=== PATIENT | female | born 1975 | race Caucasian/White ===

== ENCOUNTER → 2018-08-21 11:10 | Outpatient (CLI) | payer MEDICAID, SELFPAY ==
--- NOTE | 2018-08-21 11:25 | XR_ITS ---
XR foot LT min 3V Ordering Physician: Leticia Quezada Patient Age: 43 years: Female HISTORY: ITS.REASON: SINDHU FOOT PAIN Bilateral foot pain. TECHNIQUE: Right foot 3 views. Nonweightbearing Left foot 3 views nonweightbearing COMPARISON :No relevant prior to current there ====== RIGHT FOOT Joint spaces well-maintained. No erosions. Normal relationships. Metatarsals intact. Tarsals unremarkable.. Small/-Moderate 6 mm plantar calcaneal spur noted. IMPRESSION -------- negative right foot. No significant appearing findings Minimal plantar calcaneal spur noted. LEFT FOOT Left foot intact. Bones well mineralized. Normal relationships. Joint spaces well-maintained. No significant erosions. Adequate plantar arch bilaterally. The small accessory ossicle the medial aspect of tarsal navicular. The left foot but not seen on the right. Right. Noted but not felt to be of significance. IMPRESSION: Negative left foot. No significant findings.
== END ==
PROVIDERS: PCP Family Medicine; Visit Provider Nurse Practitioner Family
DX: M79.671 Pain in right foot (principal); M79.672 Pain in left foot
CPT/HCPCS: 73630

== ENCOUNTER → 2018-12-04 13:50 | Outpatient (CLI) | payer MEDICAID, SELFPAY ==
--- NOTE | 2018-12-04 13:59 | XR_ITS ---
EXAM: XR cervical spine 5V HISTORY: ITS.REASON: CERVICALGIA,NUMBNESS OF BOTH HANDS ORDERING PHYSICIAN: Leticia Quezada PATIENT AGE: 43 years COMPARISON: None FINDINGS: Normal alignment. No fracture or dislocation. No lytic or blastic change. C1-C7 appear intact. Oblique films show normal neural foramina bilaterally. The prevertebral soft tissues are normal and the odontoid is normal. No significant degenerative change. The disc spaces are preserved. IMPRESSION: Essentially unremarkable cervical spine, if symptoms persist consider follow-up MRI scan
== END ==
PROVIDERS: PCP Nurse Practitioner Family; Visit Provider Nurse Practitioner Family
DX: M54.2 Cervicalgia (principal); R20.0 Anesthesia of skin
CPT/HCPCS: 72050

== ENCOUNTER → 2019-09-12 23:30 | Outpatient (CLI) | payer OTHER, SELFPAY ==
[2019-09-27 12:33] LABS: Comment Comment: (.); Specimen Type Comment: (.)
== END ==
PROVIDERS: Visit Provider Nurse Practitioner Family
DX: N20.0 Calculus of kidney (principal)
CPT/HCPCS: 82370

== ENCOUNTER → 2019-10-14 15:49 | Outpatient (CLI) | payer OTHER, SELFPAY ==
--- NOTE | 2019-10-14 15:54 | XR_ITS ---
PROCEDURE: XR THORACIC SPINE 3V CLINICAL INDICATION: THORACIC PAIN Mid back pain COMPARISON: No exams were available for comparison FINDINGS: There is mild multilevel degenerative disc disease with slight decrease in the disc spaces and small anterior osteophytes from T4-T11. No fracture or dislocation. No lytic or blastic change. There is normal alignment. IMPRESSION: Mild thoracic spondylosis Dictated by: Chava Dockery MD 10/14/2019 17:59 Electronically signed by Chava Dockery MD in [place] 10/14/2019 17:59
== END ==
PROVIDERS: PCP Nurse Practitioner Family; Visit Provider Nurse Practitioner Family
DX: M54.6 Pain in thoracic spine (principal)
CPT/HCPCS: 72072

== ENCOUNTER → 2019-10-18 14:36 | Outpatient (CLI) | payer OTHER, SELFPAY ==
--- NOTE | 2019-10-18 14:42 | US_ITS ---
PROCEDURE: US KIDNEY CLINICAL INDICATION: RT RENAL STONE Right-sided flank pain COMPARISON: No exams were available for comparison FINDINGS: The right kidney is 12 x 5 x 6 cm. No hydronephrosis, cortical thinning, or renal mass or perinephric fluid collection is evident. The left kidney is 11 x 6 x 5 cm. No hydronephrosis, cortical thinning, or renal mass or perinephric fluid collection is evident. IMPRESSION: Unremarkable bilateral renal ultrasound Dictated by: Chava Dockery MD 10/18/2019 15:39 Electronically signed by Chava Dockery MD in [place] 10/18/2019 15:39
== END ==
PROVIDERS: PCP Nurse Practitioner Family; Visit Provider Nurse Practitioner Family
DX: N20.0 Calculus of kidney (principal)
CPT/HCPCS: 76770

== ENCOUNTER → 2019-12-19 14:30 | Outpatient (CLI) | payer OTHER, SELFPAY ==
--- NOTE | 2019-12-19 14:34 | US_ITS ---
PROCEDURE: US SOFT TISSUE HEAD AND NECK CLINICAL INDICATION: lipoma on neck Palpable area right posterior neck COMPARISON: [facility] US SOFT TISSUE HEAD/NECK from 02/11/2014 FINDINGS: There is an oval area of isoechoic O [place] in the subcutaneous region of the right neck measuring 3 point 3 x 1 x 3 cm. This is homogeneous in nature and may represent a lipoma. No enlarged lymph nodes or abnormal fluid collections evident at this region. IMPRESSION: Palpable abnormality in the right neck appears to represent a lipoma. This could be confirmed with CT if clinically warranted Dictated by: Chava Dockery MD 12/19/2019 15:45 Electronically signed by Chava Dockery MD in [place] 12/19/2019 15:45
== END ==
PROVIDERS: PCP Nurse Practitioner Family; Visit Provider Surgery
DX: D17.0 Benign lipomatous neoplasm of skin and subcutaneous tissue of head, face and neck (principal)
CPT/HCPCS: 76536

== ENCOUNTER → 2020-05-09 13:23 | Outpatient (CLI) | payer OTHER, SELFPAY ==
[2020-05-10 09:18] LABS: Covid-19 Nasal PCR Sendout UK Not Detected
== END ==
PROVIDERS: PCP Nurse Practitioner Family; Visit Provider Nurse Practitioner
DX: Z03.818 Encounter for observation for suspected exposure to other biological agents ruled out (principal)
CPT/HCPCS: U0003

== ENCOUNTER 2020-07-17 12:15 | Emergency (ER) | payer OTHER, SELFPAY ==
[2020-07-17 12:45] VITALS: BP 123/63; PULSE 109; RESP 18; TEMP 36.7; O2SAT 99; BMI 35.4
--- NOTE | 2020-07-17 13:05 | HMH.EDUTC ---
[facility] [place] Clinical Impression: Exposure to COVID-19 virus Disposition: Home, Self-Care Condition on Discharge: Good Instructions: Preventing the Spread of Coronavirus Discharge Instructions Additional Instructions: Drink plenty of fluids. Take tylenol for pain or fever. Follow up with your regular doctor. GO TO THE ER FOR ANY WORSENING SYMPTOMS Referrals: Leticia Quezada APRN [Primary Care Provider] - Forms: Work/School Release Time of Disposition: 13:06 Medical Decision Making - Medical Records Medical records reviewed: No: I reviewed the patient's medical records. - Wyatt Inquiry Pt receiving controlled substance: No Vital Signs: 07/17/20 12:45 07/17/20 13:57 Temperature 98.0 F 98.0 F Temperature Source Oral Oral Pulse Rate 109 H Pulse Rate [Radial] 109 H Respiratory Rate 18 18 Blood Pressure 123/63 Blood Pressure [Right Arm] 123/63 Blood Pressure Mean [Right Arm] 83 Blood Pressure Source Automatic Cuff Blood Pressure Source [Right Arm] Automatic Cuff Blood Pressure Position Sitting Blood Pressure Position [Right Arm] Sitting 02 Sat by Pulse Oximetry 99 Oxygen Delivery Method Room Air Room Air Orders (Tests/Meds): ORDERS Category Date Time Status Covid-19 Nasal PCR Sendout [facility] 07/17/20 12:53 Received [facility] [place] HPI - General Stated complaint: Covid test Time Seen by Provider: 07/17/20 13:05 Mode of Arrival: Ambulatory Source of Information: Patient Limitations: No Limitations Description of Symptoms (Recalled from Triage Doc. by RN): covid test HEENT Symptoms (Recalled from RN notes): No Resp Symptoms (Recalled from RN notes): No Skin Symptoms (Recalled from RN notes): No MS Symptoms (Recalled from RN notes): No Functional Status (Recalled from RN notes): wnl - History of Present Illness Provider Complaint: She states that she was exposed to covid. She denies any symptoms so far. - Related Data Previous Rx's Medication Instructions Recorded diclofenac sodium 1 % topical gel 4 g TOPICAL QID PRN #30 g 06/13/19 meloxicam 7.5 mg tablet 7.5 mg PO ONCE #30 tab 06/13/19 Ketorolac Tromethamine [Toradol 10 mg PO Q6H 5 Days #20 tab 09/06/19 10mg tablet] Ondansetron [Zofran 4mg ODT] 4 mg PO Q8H PRN #10 tab.rapdis 09/06/19 Tamsulosin HCl [Flomax 0.4mg 0.4 mg PO HS #5 cap 09/06/19 capsule] Allergies Allergy/AdvReac Type Severity Reaction Status Date / Time Penicillins Allergy Unknown ITCHING Verified 10/21/19 14:58 - Worker's Comp Is this a Worker's Comp case?: No [facility] History - Hepatitis A Screen Drug use history?: No High risk sexual behaviors?: No History of sexually transmitted infection?: No Currently employed?: No Childcare worker?: No Do you have indoor plumbing?: Yes Do you have electricity?: Yes Attestation statement:: This patient has been screened for Hepatitis A risk factors. I have reviewed the patient's past medical history: Yes Medical History: Reports:: Anxiety, Depression, Hypertension Other Surgeries: Yes: Cholecystectomy, Tubal Ligation, Other Amputation: No Fractures: No Comment: Remove lipoma off neck - Social History Smoking Status: Never smoker Alcohol Intake: never Substance Use Type: denies use Occupational Status: employed Housing: house Household Members: family - Psychiatric History Pschychiatric History:: Reports:: Anxiety, Depression Family Hx:: No significant family history ROS Obtained: Yes All systems reviewed & no additional complaints - Constitutional Constitutional: Reports system reviewed and no additional complaints, except as docu - Eyes Eyes: Reports system reviewed and no additional complaints, except as docu - ENT Ears, Nose, Mouth, and Throat: Reports system reviewed and no additional complaints, except as docu - Cardiovascular Cardiovascular: Reports system reviewed and no additional complaints, except as docu - Respiratory Respiratory: Yes sys
[2020-07-17 13:57] VITALS: BP 123/63; PULSE 109; RESP 18; TEMP 36.7; O2SAT 99
== END 2020-07-17 13:58 | disposition home or self-care (01) ==
PROVIDERS: Emergency Provider Nurse Practitioner Family; PCP Nurse Practitioner Family
DX: Z20.828 Contact with and (suspected) exposure to other viral communicable diseases (principal); I10 Essential (primary) hypertension; F41.8 Other specified anxiety disorders; Z79.899 Other long term (current) drug therapy
CPT/HCPCS: 99201; U0003

== ENCOUNTER 2020-11-06 14:48 | Emergency (ER) | payer OTHER, SELFPAY ==
[2020-11-06 14:50] VITALS: BP 146/102; PULSE 100; RESP 20; TEMP 36.9; O2SAT 98; BMI 32.5
--- NOTE | 2020-11-06 15:15 | PC.NURSE ---
PATIENT GIVEN TDAP TO LEFT DELTOID AT THIS TIME. LOT #[id number] EXP. 07/29/22
--- NOTE | 2020-11-06 15:26 | HMH.EDUTC ---
[facility] [place] Clinical Impression: Dog bite of right hand including fingers with infection Qualifiers: Encounter type: initial encounter Qualified Code(s): S61.451A - Open bite of right hand, initial encounter; S61.259A - Open bite of unspecified finger without damage to nail, initial encounter; L08.9 - Local infection of the skin and subcutaneous tissue, unspecified; W54.0XXA - Bitten by dog, initial encounter Disposition: Home, Self-Care Condition on Discharge: Good Instructions: DI for Dog Bite Additional Instructions: Take antibiotics, warm epsom salt soaks, and return to clinic if symptoms worsen Prescriptions: clindamycin HCL [Clindamycin HCl] 300 mg PO TID 10 Days #30 cap Transmission Status: Pending to [facility] Referrals: Leticia Quezada APRN [Primary Care Provider] - Time of Disposition: 15:38 Medical Decision Making - Wyatt Inquiry Pt receiving controlled substance: No Vital Signs: 11/06/20 14:50 Temperature 98.4 F Temperature Source Oral Pulse Rate [Right Brachial] 100 H Respiratory Rate 20 Blood Pressure [Right Arm] 146/102 H Blood Pressure Mean [Right Arm] 116 Blood Pressure Source [Right Arm] Automatic Cuff Blood Pressure Position [Right Arm] Sitting 02 Sat by Pulse Oximetry 98 Oxygen Delivery Method Room Air [facility] [place] - General Stated complaint: [id number] dog bite to right hand Time Seen by Provider: 11/06/20 15:27 Mode of Arrival: Ambulatory Source of Information: Patient Limitations: No Limitations Description of Symptoms (Recalled from Triage Doc. by RN): PATIENT C/O DOG BITE TO RIGHT HAND. STATES SHE WAS PETTING NEIGHBOR'S DOG YESTERDAY AND IT BIT HER. SHE STATES DOG IS UP TO DATE ON VACCINES. SHE IS UNSURE ABOUT HER TDAP HEENT Symptoms (Recalled from RN notes): No Resp Symptoms (Recalled from RN notes): No Skin Symptoms (Recalled from RN notes): Yes MS Symptoms (Recalled from RN notes): No Functional Status (Recalled from RN notes): WNL - History of Present Illness Provider Complaint: Dog bite to right hand approximately 24 hours ago. No fever, but hand is hot, warm, red and swollen. Dog belonged to neighbor and was UTD on shots. Onset (ago): day(s) (1) Location: right, upper extremity Relieving factors: none Exacerbating factors: none Associated symptoms: denies other symptoms - Related Data Previous Rx's Medication Instructions Recorded diclofenac sodium 1 % topical gel 4 g TOPICAL QID PRN #30 g 06/13/19 meloxicam 7.5 mg tablet 7.5 mg PO ONCE #30 tab 06/13/19 Ketorolac Tromethamine [Toradol 10 mg PO Q6H 5 Days #20 tab 09/06/19 10mg tablet] Ondansetron [Zofran 4mg ODT] 4 mg PO Q8H PRN #10 tab.rapdis 09/06/19 Tamsulosin HCl [Flomax 0.4mg 0.4 mg PO HS #5 cap 09/06/19 capsule] clindamycin HCL [Clindamycin HCl] 300 mg PO TID 10 Days #30 cap 11/06/20 Allergies Allergy/AdvReac Type Severity Reaction Status Date / Time Penicillins Allergy Unknown ITCHING Verified 10/21/19 14:58 - Worker's Comp Is this a Worker's Comp case?: No [facility] History - Hepatitis A Screen Drug use history?: No High risk sexual behaviors?: No History of sexually transmitted infection?: No Currently employed?: No Childcare worker?: No Do you have indoor plumbing?: Yes Do you have electricity?: Yes Attestation statement:: This patient has been screened for Hepatitis A risk factors. Medical History: Reports:: Anxiety, Depression, Hypertension Other Surgeries: Yes: Cholecystectomy, Tubal Ligation, Other Amputation: No Fractures: No Comment: Remove lipoma off neck - Social History Smoking Status: Never smoker Alcohol Intake: never Substance Use Type: denies use Occupational Status: other Housing: house Household Members: family - Psychiatric History Pschychiatric History:: Reports:: Anxiety, Depression Family Hx:: No significant family history ROS Obtained: Yes All systems reviewed & no additional complaints - Musculoskeletal Musc
[2020-11-06 15:35] VITALS: BP 146/102; PULSE 100; RESP 20; TEMP 36.9; O2SAT 98
== END 2020-11-06 15:37 | disposition home or self-care (01) ==
PROVIDERS: Emergency Provider Physician Assistant; PCP Nurse Practitioner Family
DX: S61.451A Open bite of right hand, initial encounter (principal); W54.0XXA Bitten by dog, initial encounter; Z23 Encounter for immunization; I10 Essential (primary) hypertension; F41.8 Other specified anxiety disorders; Z88.0 Allergy status to penicillin
CPT/HCPCS: 90471; 90714; 99202; G0463

== ENCOUNTER → 2021-05-28 11:10 | Outpatient (CLI) | payer OTHER, SELFPAY ==
--- NOTE | 2021-05-28 11:34 | XR_ITS ---
PROCEDURE: XR CERVICAL SPINE 5V CLINICAL INDICATION: NUMBNESS OF UPPER EXTREMITY, CERVICALGIA COMPARISON: CR [id number] XR cervical spine 5V from 12/04/2018 FINDINGS: Normal alignment. No acute fracture or dislocation. Mild multilevel degenerative disc disease from C2 to C6. Small endplate osteophytes are present. There is mild foraminal narrowing on the left at C5-C6 with moderate right-sided foraminal narrowing at C5-C6. Facet hypertrophic changes are present from C2-C6. IMPRESSION: Cervical spondylosis as described above with bilateral foraminal narrowing at C5-C6. These findings have developed since 12/04/2018 Dictated by: Chava Dockery MD 05/28/2021 12:16 Chava Dockery MD in [place] 05/28/2021 12:16
[2021-05-28 11:49] LABS: Basophils # 0.1 K/mm3 (0-0.2); Basophils % 1.4 % (0.1-2.0); Eosinophils # 0.1 K/mm3 (0.0-0.4); Eosinophils % 1.2 % (0.1-12.0); Hematocrit 46.5 % (37.0-47.0); Lymphocytes # 3.2 K/mm3 (0.7-4.5); Lymphocytes % 34.4 % (10-50); Mean Corpuscular HGB Conc 32.2 g/dL (31.8-35.4); Mean Corpuscular Hemoglobin 28.7 pg (27.0-31.2); Mean Corpuscular Volume 89.1 fl (81-99); Monocytes # 0.5 K/mm3 (0.1-1.0); Monocytes % 5.4 % (1.7-9.3); Neutrophils # 5.3 K/mm3 (1.8-7.8); Neutrophils % 57.5 % (37.0-80.0); Platelet Count 467 K/mm3 (142-424); Red Blood Count 5.22 M/mm3 (4.20-5.40); Red Cell Distribution Width 13.4 % (11.5-17.5); White Blood Count 9.2 K/mm3 (4.8-10.8)
[2021-05-28 12:59] LABS: Alanine Aminotransferase 48 U/L (12-78); Albumin/Globulin Ratio 1.3 (1.1-1.8); Alkaline Phosphatase 75 U/L (38-126); Anion Gap 15.6 mEq/L (5-15); Aspartate Amino Transferase 52 U/L (14-36); Bilirubin,Total 0.4 mg/dl (0.2-1.3); Blood Urea Nitrogen 6 mg/dl (7-17); Calcium 9.3 mg/dl (8.4-10.2); Carbon Dioxide 24 mmol/L (22.0-30.0); Chloride 103 mmol/L (98-107); Cholesterol 207 mg/dl (140-200); Estimated Glomerular Filt Rate 108 ml/min (>60); GFR (African American) 131 ML/MIN (>60); Glucose 114 mg/dl (74-100); HDL Cholesterol 52 mg/dl (40-60); Magnesium 1.8 mg/dl (1.6-2.3); Potassium 4.6 mmoL/L (3.5-5.1); Sodium 138 mmol/L (136-145); Triglycerides 191 mg/dl (30-150); VLDL Cholesterol 38 mg/dL (0-40)
[2021-05-28 13:10] LABS: C-Reactive Protein 4.8 mg/L (0-4); Direct LDL Cholesterol 118.32 mg/dL (100-129)
[2021-05-28 13:49] LABS: Vitamin B12 547 pg/mL (239-931)
== END ==
PROVIDERS: PCP Nurse Practitioner Family; Visit Provider Nurse Practitioner Family
DX: I10 Essential (primary) hypertension (principal); R20.0 Anesthesia of skin; R51.9 Headache, unspecified; M54.2 Cervicalgia
CPT/HCPCS: 36415; 72050; 80053; 80061; 82607; 83735; 84443; 85025; 86140

== ENCOUNTER → 2021-06-11 07:45 | Outpatient (CLI) | payer OTHER, SELFPAY ==
--- NOTE | 2021-06-11 07:51 | MR_ITS ---
PROCEDURE INFORMATION: Exam: MR Head Without Contrast Exam date and time: 06/11/2021 7:51 AM Age: 45 years old Clinical indication: Pain; Headache; Additional info: Recurrent headache. Headache. Dizziness and blurred vision. Prior MR 12-19-16 TECHNIQUE: Imaging protocol: MR of the head without contrast. COMPARISON: BRW/O MRI-BRAIN W/O 12/19/2016 8:22 AM FINDINGS: Brain: There are few punctate hyperintense foci within the subcortical white matter. For instance 3 mm hyperintense focus in the left frontal white matter on series 5, image 12. Small bifrontal hyperintense foci on images 19 and 20. These have not significantly changed from prior scan. No evidence of infarct. DWI demonstrates no evidence of acute infarct. There is no hemorrhage or extra-axial collection. There is no mass. There are no abnormal flow voids. Cerebral ventricles: There is no hydrocephalus. Bones/joints: Unremarkable. Paranasal sinuses: Normal as visualized. No acute sinusitis. Mastoid air cells: Trace of fluid in the left mastoids similar to prior scan. Orbital cavity: Unremarkable. Soft tissues: Unremarkable. IMPRESSION: 1. There are few punctate hyperintense foci in the subcortical white matter. This is a nonspecific finding which could represent small foci of microvascular or demyelinating disease. Foci such is ease are seen in increased incidence in patients with migraine headaches. Often such minimal foci are idiopathic with no clinical correlate. These findings have not significantly changed from prior scan. 2. No acute intracranial lesion or injury
== END ==
PROVIDERS: PCP Nurse Practitioner Family; Visit Provider Nurse Practitioner Family
DX: R51.9 Headache, unspecified (principal); R20.0 Anesthesia of skin
CPT/HCPCS: 70551

== ENCOUNTER → 2021-06-30 13:08 | Outpatient (CLI) | payer OTHER, SELFPAY | PROVIDERS: PCP Nurse Practitioner Family; Visit Provider Specialist | DX: R53.83 Other fatigue (principal); G47.19 Other hypersomnia; G43.119 Migraine with aura, intractable, without status migrainosus; I10 Essential (primary) hypertension | CPT/HCPCS: 95806 ==

== ENCOUNTER → 2022-07-25 12:50 | Outpatient (CLI) | payer OTHER, SELFPAY ==
--- NOTE | 2022-07-25 12:56 | CT_ITS ---
FINAL REPORT TECHNIQUE: Axial images through the abdomen and pelvis were performed without contrast.This study was performed with techniques to keep radiation doses as low as reasonably achievable, (ALARA). Individualized dose reduction techniques using automated exposure control or adjustment of mA and/or kV according to the patient's size were employed. CLINICAL HISTORY: RT FLANK PAIN,HEMATURIA COMPARISON: 09/06/2019 FINDINGS: ABDOMEN: The lung bases are clear. The heart size is normal. Limited images of the liver are unremarkable. Patient is status post cholecystectomy. The spleen is normal. No adrenal mass is identified. The aorta is normal in caliber. There is no significant free fluid or adenopathy. There is no nephrolithiasis. There is no hydronephrosis. PELVIS: The appendix is normal. The urinary bladder is unremarkable. There is no significant free fluid or adenopathy. IMPRESSION: No hydronephrosis or nephrolithiasis. Reviewed, Interpreted and Dictated by Gutierrez Herrera III, MD Transcribed by Courtney Lock Authenticated and [facility]
== END ==
PROVIDERS: PCP Nurse Practitioner Family; Visit Provider Nurse Practitioner Family
DX: R10.9 Unspecified abdominal pain (principal); R31.9 Hematuria, unspecified
CPT/HCPCS: 74176

== ENCOUNTER → 2022-08-23 10:07 | Outpatient (CLI) | payer OTHER, SELFPAY ==
--- NOTE | 2022-08-23 10:13 | US_ITS ---
FINAL REPORT CLINICAL HISTORY: SUPRAPUBIC PAIN FINDINGS: Transvaginal sonographic images of the pelvis were obtained. The uterus enlarged and measures 10.4 x 5.9 x 5.2 cm. Heterogeneous echotexture of the uterus may represent adenomyosis. The endometrium measures 16 mm, which is thickened. There is a 9 mm presumed submucosal fibroid. The right ovary measures 3.4 cm in length and left ovary measures 3.3 cm in length. Normal blood flow seen to the ovaries. There are several follicles within the right ovary. A 2.1 cm cyst is seen in the left ovary. There is no evidence of free fluid. IMPRESSION: Enlarged uterus with a small uterine fibroid. Probable adenomyosis. Abnormal endometrial thickening. Left ovarian cyst. Reviewed, Interpreted and Dictated by Gutierrez Herrera III, MD Transcribed by Jayla Perez Authenticated and [facility]
--- NOTE | 2022-08-23 10:24 | XR_ITS ---
FINAL REPORT CLINICAL HISTORY: Pain in left heel. Swelling near ankle. FINDINGS: LEFT FOOT Three views of the left foot demonstrate no acute fracture or dislocation. The joint spaces are preserved. The soft tissues are unremarkable. IMPRESSION: No acute bony abnormality. Reviewed, Interpreted and Dictated by Gutierrez Herrera III, MD Transcribed by Jayla Perez Authenticated and [facility]
== END ==
PROVIDERS: PCP Nurse Practitioner Family; Visit Provider Nurse Practitioner Family
DX: R10.2 Pelvic and perineal pain (principal); M79.672 Pain in left foot
CPT/HCPCS: 73630; 76830

== ENCOUNTER → 2022-09-16 13:06 | Outpatient (CLI) | payer OTHER, SELFPAY ==
--- NOTE | 2022-09-16 13:17 | MR_ITS ---
FINAL REPORT CLINICAL HISTORY: LEFT FOOT PAIN HEEL FINDINGS: Multiplanar MR imaging of the left foot was performed without contrast. There is irregularity at the middle subtalar joint with multiples presumed subchondral cysts. 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 These findings are well visualized on sagittal T1 and T2 image 13. The flexor and extensor tendons are intact. No ligamentous injury is identified. The musculature is intact. The plantar aponeurosis is intact. No soft tissue mass or cyst is identified. 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 Reviewed, Interpreted and Dictated by Gutierrez Herrera III, MD Transcribed by Courtney Lock Authenticated and [facility]
== END ==
PROVIDERS: PCP Nurse Practitioner Family; Visit Provider Nurse Practitioner Family
DX: M79.672 Pain in left foot (principal)
CPT/HCPCS: 73718

== ENCOUNTER 2022-12-26 15:00 | Outpatient (RCR) | payer OTHER, SELFPAY ==
--- NOTE | 2022-11-02 13:48 | HMH.PTOPEV ---
PT Outpatient Evaluation Rehab PT Outpatient Evaluation Start: 11/02/22 12:48 Freq: Status: Active Protocol: Document 11/02/22 12:49 DARLINEZORAIDA (Rec: 11/02/22 13:44 GABRIELLA [id number]) E-signed By Madison Limon, PT Outpatient Therapy Subjective History Subjective History Pt is a 47 y/o female referred to PT for L plantar fasciitis . Pt reports insidious onset of L heel pain 2 months ago that has been off and on since . Pt reports recent worsening of pain within the past couple weeks with pain radiating up to the medial ankle. Pt reports intermittent pins and needles of the bottom of the foot as well. Pt reports pain is aggravated by prolonged standing/walking (<30 min). 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 Pt reports prior treatment included a walking boot for a week and a half and 2 unna boot applications. Pt reports walking in the boot caused low back pain but helped some with the foot. Pt denies taking medication or using ice /heat for pain. Pt reports her ankle feels somewhat unstable throwing her off balance, denies falls. Pt denies any further comorbidities to report. 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
--- NOTE | 2022-11-29 17:51 | HMH.RHREAS ---
Rehab Reassessment Rehab OP Re-assessment Start: 11/29/22 16:40 Freq: Status: Active Protocol: Document 11/29/22 16:40 GABRIELLA (Rec: 11/29/22 17:50 GABRIELLA [id number]) E-signed By Madison Limon PT Rehab Re-assessment Subjective Subjective Pt reports she had an injection in her PF last week which has seemed to help decreased intensity and frequency of pain overall. Pt also reports she received a night splint from her pyrometer temperature regulator but is unable to sleep with it donned due to pain. Pt reports she feels 50% improved since starting PT and reports pain at worst as 5 /10 within the last week. Pt reports she bought plantar fascia insoles at [employer] which have seemed to help at work. Objective Objective Notes TTP: PF insertion L ankle AROM: 12 DF, 38 PF L ankle MMT: 4+/5 grossly Assessment Progress Assessment Progressing as Expected Assessment Notes Pt has attended PT visits consisting of aerobic exercise , LE stretching/strengthening, IASTM to the plantar fascia, and modalities with fair-good tolerance. Pt demonstrated improved PF AROM and MMT to this date. Pt would continue to benefit from skilled PT to improve subjective report of pain, ankle AROM/MMT, flexibility and functional activity tolerance to improve overall QOL. Patient goals met ST/3 Goals Not Met LTG Revised Goals n/a Plan Plan Continue initial POC Frequency of Therapy 2x/week Duration of therapy 3-4 more weeks Time and Billing Re-Eval Time 8 Re-Eval Billing Units 1 PHYSICIAN CERTIFICATION: I certify the specified therapy services for Lavern Damon are required, authorized, and reviewed every 30 days.
== END 2022-12-26 15:05 | disposition home or self-care (01) ==
LOC: PT 15:00
PROVIDERS: PCP Nurse Practitioner Family; Visit Provider Podiatrist
DX: M72.2 Plantar fascial fibromatosis (principal); M79.672 Pain in left foot
CPT/HCPCS: 97010; 97014; 97033; 97035; 97110; 97140; 97163; 97164; 97530; G0283